=== PATIENT | male | born 1960 | race Caucasian/White ===

== ENCOUNTER 2021-06-21 12:37 | Emergency (ER) | payer BC, OTHER ==
[~2021-06-21] VITALS: Ht 182.9 cm; Wt 77.3 kg
[2021-06-21 12:50] VITALS: BP 142/87
[2021-06-21] MEDS ORDERED: cephalexin 250mg capsule PO ONE (16:30)
[2021-06-21] MEDS ORDERED: CEPH-585 PO (16:30)
[2021-06-21] MEDS ORDERED: sulfamethoxazole/trimethoprim DS (800/160mg) tablet PO ONE (16:30)
[2021-06-21] MEDS ORDERED: SULF1TAB45 PO (16:30)
== END 2021-06-21 18:36 | disposition home or self-care (01) ==
LOC: ER 12:38
DX: S71.001A Unspecified open wound, right hip, initial encounter (principal); L02.415 Cutaneous abscess of right lower limb; F17.210 Nicotine dependence, cigarettes, uncomplicated; Z79.2 Long term (current) use of antibiotics; Z79.899 Other long term (current) drug therapy; X58.XXXA Exposure to other specified factors, initial encounter; Y93.89 Activity, other specified; Y92.89 Other specified places as the place of occurrence of the external cause; Y99.8 Other external cause status
CPT/HCPCS: 99283

== ENCOUNTER 2021-12-14 18:29 | Emergency (ER) | payer BC, MEDICAID ==
[~2021-12-14] VITALS: Ht 182.9 cm; Wt 72.7 kg
[~2021-12-14 18:29] MED LIST: CEPH-585 PO
[2021-12-15] MEDS ORDERED: cephalexin 250mg capsule PO ONE ×2 (00:05→00:20)
[2021-12-15] MEDS ORDERED: bacitracin 15gm ointment TP ONE ×2 (00:05→00:20)
[2021-12-15] MEDS ORDERED: CEPH250T PO (00:05)
[2021-12-15] MEDS ORDERED: ondansetron 4mg rapidly disintigrating tab PO ONE ×2 (00:05→00:25)
[2021-12-15] MEDS ORDERED: BACI28.42 TP (00:05)
[2021-12-15 01:40] VITALS: BP 132/83
== END 2021-12-15 01:42 | disposition home or self-care (01) ==
LOC: ER 18:30
DX: L03.115 Cellulitis of right lower limb (principal); Z79.2 Long term (current) use of antibiotics
CPT/HCPCS: 99284

== ENCOUNTER 2023-09-13 03:40 | Emergency (ER) | payer MEDICAID ==
[~2023-09-13] VITALS: Ht 182.9 cm; Wt 70.1 kg
[~2023-09-13 03:40] MED LIST changes: +BACI28.42 TP; -CEPH-585 PO
[2023-09-13] MEDS: ringers solution, lacted 1,000 ML IV ONE (10:59)
[2023-09-13 11:26] LABS: BASOPHILS % (AUTO) 0.5 % (0-1); EOSINOPHILS # (AUTO) 0.2 X10'3 (0-0.9); EOSINOPHILS % (AUTO) 3.8 % (0-6); HEMATOCRIT 41.3 % (42.0-52.0); HEMOGLOBIN 14.1 g/dl (14.0-17.9); LYMPHOCYTES # (AUTO) 1.9 X10'3 (1.1-4.8); LYMPHOCYTES % (AUTO) 35.1 % (21-51); MEAN CORPUSCULAR HEMOGLOBIN 30.5 PG (27.0-31.0); MEAN CORPUSCULAR HGB CONC 34.1 g/dL (33.0-36.5); MEAN CORPUSCULAR VOLUME 89.4 FL (78-98); MEAN PLATELET VOLUME 8.6 FL (7.4-10.4); MONOCYTES # (AUTO) 0.4 X10'3 (0-0.9); MONOCYTES % (AUTO) 8.1 % (2-12); NEUTROPHILS # (AUTO) 2.9 X10'3 (1.8-7.7); NEUTROPHILS % (AUTO) 52.5 % (42-75); PLATELET COUNT 383 X10'3 (140-440); RED BLOOD COUNT 4.62 X10'6 (4.70-6.10); RED CELL DISTRIBUTION WIDTH 15.5 % (11.5-14.5); WHITE BLOOD COUNT 5.5 X10'3 (4.5-11.0)
[2023-09-13 11:47] LABS: ALBUMIN 3.6 G/DL (3.4-5.0); ANION GAP 8 (8-16); BLOOD UREA NITROGEN 16 MG/DL (7-18); BUN/CREATININE RATIO 21.9 (10.0-20.0); CALCIUM 9.1 MG/DL (8.5-10.1); CHLORIDE 103 MMOL/L (99-107); CREATININE 0.73 MG/DL (0.60-1.10); GLUCOSE 123 MG/DL (70-104); POTASSIUM 3.3 MMOL/L (3.5-5.1); SODIUM 139 MMOL/L (135-145); TOTAL CARBON DIOXIDE 28.3 MMOL/L (24-32); eCRCL 101 ML/MIN; eGFR > 90 ML/MIN
[2023-09-13] MEDS ORDERED: AMOX-117 PO (12:32)
[2023-09-13 12:46] VITALS: BP 132/86; PULSE 73; RESP 16; TEMP 97.8; O2SAT 98
== END 2023-09-13 12:48 | disposition home or self-care (01) ==
LOC: ER 03:41
DX: A46 Erysipelas (principal); F17.200 Nicotine dependence, unspecified, uncomplicated; Z79.2 Long term (current) use of antibiotics
CPT/HCPCS: 71045; 80048; 83605; 83735; 84145; 85025; 87040; 93005; 96360; 99285; J7120

== ENCOUNTER 2025-04-11 23:49 | Inpatient (IN) | payer MEDICARE, MEDICAID ==
[~2025-04-11] VITALS: Ht 182.9 cm; Wt 68.2 kg
--- NOTE | 2025-04-11 23:56 | ELECTROCARDIOGRAPH REPORT ---
[facility] Test Date: 2025-04-11 Test Time: 23:55:10 Pat Name: NIKOLE BARILLAS Department: EMERGENCY ROOM Patient ID: [facility]-[id number] Room: ORTHO [facility] Gender: M Bark Peeler: YOGI : 1960 Requested By: JYOTI MELISSA Order Number: [id number] Reading MD: Dr. Osman Kearns Measurements Intervals [place] Rate: 115 P: 74 NJ: 139 QRS: 69 QRSD: 106 T: 88 QT: 339 QTc: 469 Interpretive Statements Sinus tachycardia Biatrial enlargement RSR' in V1 or V2, probably normal variant LVH with secondary repolarization abnormality Baseline wander in lead(s) II Electronically Signed On 04-16-2025 0:20:[address] Osman Kearns Please click the below link to view image of tracing.
[2025-04-12] VITALS (8 sets, daily range): PULSE 82–105; RESP 14–20; O2SAT 94–99
--- NOTE | 2025-04-12 00:25 | RADIOLOGY REPORT ---
CHEST RADIOGRAPH INDICATION: cough.congestion,sob TECHNIQUE: Frontal and lateral view of the chest was obtained COMPARISON: DI CHEST,SINGLE VIEW on DOS: 09/13/23 FINDINGS: Cardiac silhouette is borderline enlarged. Mild prominence of the pulmonary vasculature. No dense focal airspace disease. No significant pleural effusions or pneumothorax. Bones and soft tissues demonstrate no significant abnormality. IMPRESSION: Cardiomegaly with mild pulmonary venous congestion.
--- NOTE | 2025-04-12 00:26 | Physician Documentation ---
History of Present Illness ~ Chief Complaint: Cold, cough & congestion Stated Complaint: COUGH,COLD,CONGESTION Time Seen by MD: 05:04 Primary Medical Doctor: NONE HPI This is a 64-year-old male who presents by EMS with three days of progressively worsening cough and chest congestion. Patient reports cough has been nonproductive and reports no fever. Patient has a additionally concern for to his right thigh caused by a rasp that he accidentally struck his thigh with four days prior. Date: Apr 12, 2025 Time: 05:04 Additional note by Jake Melissa DO: I took over the care of this patient from previous physician. I reviewed any previous notes available, obtain my own history, review of systems and physical examination was performed by myself. This is a 64-year-old gentleman with a known history of tobacco use, methamphetamine use, no formal diagnosis of congestive heart failure, presents for evaluation of progressive worsening shortness a breath that has been present for the last three days. It is exertional, positional, it is accompanied by chest pain/pressure. It is getting worse. He is no longer able to ambulate even smallest of distances. This has not happened in the past. Denies any fever or chills. Has a wound to the right thigh four days ago. Medication Reconciliation Allergies: Coded Allergies: No Known Allergies (Unverified , 04/12/25) Scheduled Atorvastatin Calcium (Atorvastatin Calcium), 3 TAB PO DAILY, (Reported) Bacitracin (Bacitracin), 1 APPLIC TP BID Baclofen (Baclofen), 1 TAB PO TID, (Reported) Duloxetine HCl (Duloxetine HCl), 1 CAP PO DAILY, (Reported) Gabapentin (Gabapentin), 1 CAP PO TID, (Reported) Scheduled PRN Fluticasone Propionate (Fluticasone Propionate), 1-2 SPRAYS BOTHNARES DAILY PRN for cough, (Reported) Past Medical History Past Medical History: *DERMATOLOGY*, Cellulitis Past Surgical History: orthopedic surgeries Alcohol Use: None Drug Use: none Lives with: Family Lives In: Homeless Review of Systems ROS As stated above in the HPI, otherwise all systems are reviewed and negative. Physical Exam Vital Signs: Temperature: 98.6, Source: Oral, Heart Rate: 119, Respiratory Rate: 20, BP: 159/109, Pulse Oximetry: 96, Weight: 76.000 Oxygen Flow Rate: 0 Physical Exam GENERAL: Awake, alert, oriented, GCS 15, no apparent distress, non-toxic appearing, answers questions, follows commands appropriately. Examined in triage HEENT: Atraumatic, normocephalic, pupils equal, extraocular muscles intact, sclerae anicteric, mucus membranes moist, oropharynx is clear, no stridor. NECK: supple, full active range of motion, trachea midline, no thyromegaly, no lymphadenopathy, no JVD. CARDIOVASCULAR: regular rate/rhythm, no murmurs/gallops/rubs, Pulses are 2+ in all extremities and symmetric. Capillary refill less than 2 seconds. PULMONARY: Nonlabored, good air movement ,no respiratory distress, speaking in full sentences, coarse breath sounds bilaterally, no wheezing, no ronchi, bilateral rales, no accessory muscle use. GASTROINTESTINAL: Soft, non-tender, non-distended, normal active bowel sounds, no organomegaly, no pulsatile masses, no CVA tenderness. NEUROLOGIC: Lucid with normal mental status. Normal facial symmetry. Moves all extremities symmetrically and with purpose. No truncal ataxia. Speech is fluid without evidence of dysarthria or aphasia, no focal deficits appreciated. MUSCULOSKELETAL: There is full range of motion of all extremities. There is no joint pain or joint swelling or joint erythema. There is no muscle pain or tenderness or swelling. EXTREMITIES: warm, well-perfused, no cyanosis, no clubbing, no edema, no acute deformities. Skin: warm, dry, no rashes or lesions, no jaundice, no petechiae orpurpura. No ecchymosis. PSYCHIATRIC: Normal affect, normal insight, normal concentration. Focused exam: [] SKIN: Shallow wound to right anterior thigh approximately 5 cm x 1 cm, mild purulence to wound, approximately 1 cm of surrounding erythema NEURO: PSYCH: Progress Results/Orders Results/Orders Medications Received in ER Medications (Trade) Dose Ordered Sig/Sera Route PRN Reason Start Time Stop Time Status Last Admin Dose Admin (Septra DS tab) 1 tab ONCE ONCE PO 04/12/25 05:10 04/12/25 05:12 DC 04/12/25 05:31 1 TAB (Keflex capsule) 500 mg ONCE ONCE PO 04/12/25 05:10 04/12/25 05:12 DC 04/12/25 05:31 500 MG Vital Signs 04/11/25 04/12/25 23:57 03:31 Temp 98.6 98.9 Pulse 119 60 Resp 20 18 B/P (MAP) 159/109 146/97 (113) Pulse Ox 96 95 O2 Flow Rate 0 0 Laboratory Tests Test 04/11/25 23:57 White Blood Count 10.8 Red Blood Count 4.19 L Hemoglobin 12.2 L Hematocrit 37.0 L Mean Corpuscular Volume 88.3 Mean Corpuscular Hemoglobin 29.1 Mean Corpuscular Hemoglobin Concent 33.0 Red Cell Distribution Width 15.3 H Platelet Count 550 H Mean Platelet Volume 8.4 Neutrophils (%) (Auto) 77.4 H Lymphocytes (%) (Auto) 14.3 L Monocytes (%) (Auto) 6.0 Eosinophils (%) (Auto) 1.5 Basophils (%) (Auto) 0.8 Neutrophils # (Auto) 8.3 H Lymphocytes # (Auto) 1.5 Monocytes # (Auto) 0.7 Eosinophils # (Auto) 0.2 Basophils # (Auto) 0.1 CBC Comment Sodium Level 138 Potassium Level 3.9 Chloride Level 104 Carbon Dioxide Level 26.6 Anion Gap 7 L Blood Urea Nitrogen 14 Creatinine 0.88 Estimated GFR/1.73 m2 87 BUN/Creatinine Ratio 15.9 Glucose Level 176 H Calcium Level 8.2 L Pro-B-Type Natriuretic Peptide 2026 H Albumin 2.9 L Chemistry Comments EKG/XRAY/CT/US/VASC/MRI EKG : Additional Comment EKG was obtained and interpreted by myself shows sinus tachycardic, rate of 115, normal [place] interval, narrow QRS, no QT prolongation, normal axis, no STEMI. Medical Decision Making Additional information obtaine: old records Findings MSE performed in triage and patient returned to ED lobby by nursing staff to await available ED room Date: Apr 12, 2025 Time: 05:06 Facility Status: ED Holds, RME process The plan was discussed with the patient, who demonstrates clear understanding of the plan and is in agreement with the plan unless otherwise noted in the chart. All questions have been answered, all concerns were addressed unless otherwise documented. I was available throughout their ED stay for frequent reassessment and questions. Differential Diagnoses (considered and possible or likely): [Differential diagnosis considered includes COVID, influenza, RSV, upper respiratory infection in the top of the viruses, bacterial pneumonia, CHF exacerbation, chest wall pain, pleurisy, pneumonia, pulmonary embolus, GERD, esophagitis, gastritis, anxiety, stress reaction, costochondritis, acute coronary syndrome, aortic dissection, pericarditis, myocarditis, or pneumothorax. His thigh wound could represent cellulitis versus abscess, less likely necrotizing infection] ??Differential Diagnoses (considered and unlikely, not requiring evaluation currently): [See above] MDM Data Please see [facility] for the following: Independent Historians and external Records Review. Historian: [Patient] Independent Historians: ?[Record review] Medication Management: [Reviewed medication list] Social History and determinants: [Reviewed] Please see the body of the note for the following: Any independent interp retations of ECG, imaging studies. All vitals signs/haemodynamics, ordered tests were independently reviewed and interpreted by myself. Nursing triage complaint and vitals reviewed, additional nursing notes were reviewed as available and I agree unless otherwise noted or documented in contradiction in the chart Vital Signs: Independently reviewed Labs: Independently interpreted Imaging: Independently interpreted Old Medical Records: Independently reviewed, see HPI for relevant summary and information Pulse Oximetry: [92%] interpreted as [borderline hypoxia] by me [Machine Clothing Man: [Regular Rate, Regular rhythm, no ectopy, NSR] reviewed and interpreted by me] Additionally notably showing: [Hemodynamics reviewed. The patient is not febrile, tachycardic, tachycardic improved with rest alone. No evidence of hypotension. No evidence of respiratory distress. CBC normal, no leukocytosis. Chemistry is unremarkable. BNP is elevated concerning for new onset congestive heart failure. Chest x-ray shows pulmonary vascular congestion and cardiomegaly consistent with a new diagnosis of CHF.] Tests considered but not ordered include: [Echocardiogram and stress test can be done on an inpatient basis] Social Determinants of Health Impact: Patient was evaluated in [facility], or [facility] [place] to healthcare due to below par ratio of patient to medical providers. [] Comorbid Conditions Impacting Present Evaluation and Care/Treatment: [Polysubstance abuse including meth use] Management Discussions with other Healthcare Providers: [Hospitalist regarding admission] Treatment and Disposition Medication Management (Given or considered): [Lasix, antibiotics]. See EMR for details Consideration for Hospitalization/Escalation/Deescalation of Care: Admission for observation for further workup of his new onset congestive heart failure and chest pain. ?ED Course:?[Heart score is 4] ?Shared decision making:?[] Code status:?FULL Please see the full Electronic Medical Record for full details of nursing documentation, medications list, other records of complete past medical history and conditions, vital signs, laboratory studies, and any radiologic study interpretations by radiologists. Portions of this note were completed using [employer] dictation software and as a result there may exist minor errors in spelling. I have reviewed elements of past family and social history and agree as included in note. Differential Dx:Considerations: Include: Other (See body of main note for differential diagnosis) Departure Disposition: ADMITTED INPATIENT Admitted to Inpatient Unit: to hospitalist Admission Level of Care: PCU with Tele Impression: Primary Impression: New onset of congestive heart failure Additional Impressions: Exertional chest pain Wound of thigh Condition: Stable Referrals: NO PRIMARY CARE PROVIDER (PCP) Signature Scribe Signature: No scribe Attestation: The note accurately reflects work and decisions made by me.Jake Melissa DO 04/12/25 05:10 YASIR GOMEZ Apr 12, 2025 00:26 JAKE MELISSA DO Apr 12, 2025 05:10 AUSTIN KAPADIA MD Apr 12, 2025 07:36
[2025-04-12 00:35] LABS: MEAN PLATELET VOLUME 8.4 FL (7.4-10.4); RED CELL DISTRIBUTION WIDTH 15.3 % (11.5-14.5)
[2025-04-12 00:59] LABS: CREATININE 0.88 MG/DL (0.60-1.10); PRO BRAIN NATRIURETIC PEPTIDE 2026 PG/ML (0-125); TOTAL CARBON DIOXIDE 26.6 MMOL/L (24-32); eCRCL 78 ML/MIN; eGFR 87 ML/MIN
[2025-04-12] MEDS ORDERED: FLUT16SP26 BOTHNARES (05:25)
[2025-04-12] MEDS ORDERED: GABA-535 PO (05:25)
[2025-04-12] MEDS ORDERED: BACL10TA2 PO (05:25)
[2025-04-12] MEDS ORDERED: ATOR10TA70 PO (05:25)
[2025-04-12] MEDS ORDERED: DULO30CA52 PO (05:25)
[2025-04-12] MEDS: sulfamethoxazole/trimethoprim DS (800/160mg) tablet PO ONE (05:31)
[2025-04-12] MEDS ORDERED: potassium Cl 40MEQ/1/2NS 520ml 520 ML IV PRN (07:40)
[2025-04-12] MEDS ORDERED: potassium Cl 20 mEq SR tablet PO PRN ×2 (07:40)
[2025-04-12] MEDS ORDERED: magnesium sulf-water 4G/100mL 100 ML IV PRN (07:40)
[2025-04-12] MEDS ORDERED: mag hydrox/Alum hydrox/simeth 30ml oral suspension PO PRN (07:40)
[2025-04-12] MEDS ORDERED: ondansetron/PF 4mg/2ml inj IV PRN (07:40)
[2025-04-12] MEDS ORDERED: magnesium sulf-water 2g/50mL 50 ML IV PRN (07:40)
[2025-04-12] MEDS ORDERED: HYDROcodone/acetaminophen 10/325mg tab PO PRN (07:40)
[2025-04-12] MEDS ORDERED: magnesium hydroxide 30ml (MOM) UD suspension PO PRN (07:40)
[2025-04-12] MEDS: PERFLUTREN PROTEIN-A MICROSPHR (Optison) 0.22 MG/ML 3ML VIAL IV ONE (07:40)
[2025-04-12] MEDS ORDERED: magnesium Cl slow-release 64mg tablet PO PRN (07:40)
[2025-04-12] MEDS ORDERED: HYDROcodone/acetaminophen 5mg/325mg tablet PO PRN ×2 (07:40→14:20)
[2025-04-12] MEDS: K and/or MAG REPLACEMENT MC SCH (08:00)
[2025-04-12] MEDS: docusate sod 100mg capsule PO SCH (08:00)
[2025-04-12] MEDS: furosemide 10 MG/1 ML 10ml inj IV ONE (08:04)
[2025-04-12] MEDS: heparin, porcine 5000 units/ml vial SQ SCH (08:37)
[2025-04-12] MEDS ORDERED: albuterol 2.5 MG/3 ML nebule NEB PRN (09:00)
[2025-04-12] MEDS: budesonide 0.5mg/2ml UD nebule IH SCH (10:11)
[2025-04-12] MEDS: ipratropium/albuterol 3ml nebule NEB SCH (10:11)
[2025-04-12 10:53] LABS: LEUKOCYTE ESTERASE ,URINE NEGATIVE (Neg); NITRITES, URINE NEGATIVE (Neg); OCCULT BLOOD,URINE TRACE-INTACT (Neg)
[2025-04-12 10:54] LABS: UA COLLECTION TYPE URINAL
[2025-04-12 10:57] LABS: MUCUS STRANDS NONE SEEN /LPF (Neg); SQUAMOUS EPITHELIAL CELL,UR NONE SEEN /LPF (FEW)
[2025-04-12 12:02] LABS: URINE AMPHETAMINE SCREEN NEGATIVE (Neg); URINE BARBITUATE SCREEN NEGATIVE (Neg); URINE BENZODIAZEPINES SCREEN NEGATIVE (Neg); URINE CANNABINOID SCREEN NEGATIVE (Neg); URINE COCAINE SCREEN NEGATIVE (Neg); URINE METHADONE SCREEN NEGATIVE (Neg); URINE OPIATE SCREEN NEGATIVE (Neg); URINE PHENCYCLIDINE SCREEN NEGATIVE (Neg)
[2025-04-12] MEDS ORDERED: CefTRIAXone/D5W-Rocephin 1gm 50 ML IV ONE (14:10)
[2025-04-12] MEDS ORDERED: morphine 4 MG/ML inj SYRINge IV PRN (14:20)
--- NOTE | 2025-04-12 14:42 | CARDIOLOGY REPORT ---
APPROVED REPORT EXAM: Comprehensive 2D, Doppler, and color-flow Echocardiogram. Patient Location: ED8 Blood Pressure: 138/92 mmHg Heart Rate: 102 bpm Rhythm: NSR Indications CONGESTIVE HEART FAILURE METHAMPHETAMINE USE SHORTNESS OF BREATH CRAP SHOOTER: None PRIOR ECHOCARDIOGRAM: None. 2D Dimensions RVDd 2.7 cm IVSd 0.8 (0.7-1.1cm) LVDd 6.8 cm PWd 1.0 (0.7-1.1cm) IVSs 1.1 (0.8-1.2cm) LVDs 6.0 (2.5-4.0cm) PWs 1.4 (0.8-1.2cm) LVOT Diameter 2.01 (1.8-2.4cm) LVEF(%) 25.0 (>50%) FS (%) 11.9 % SV 59.7 ml CO 5.8 L/min M-Mode Dimensions Left Atrium(MM) 4.15 (2.5-4.0cm) Aortic Root 3.60 (2.2-3.7cm) Aortic Cusp Exc 1.68 (1.5-2.0cm) Aortic Valve AoV Peak Nain. 130.5 cm/s AoV VTI 19.5 cm AO Peak GR. 6.8 mmHg AO Mean GR. 4 mmHg LVOT VTI 14.35 cm LVOT Peak Nain. 83.8 cm/s MARTA(VTI)/BSA 2.33 cm2/m2 MARTA (VTI) 2.33 cm2 AV DI 0.74 % Mitral Valve MV E Velocity 95.9 cm/s MV Peak Gr. 5 mmHg MV PHT 36 ms MVA (PHT) 6.11 cm2 MR VMax 542.7 cm/s MV VMax 112.1 cm/s MR PG Max 117.8 mmHg Tricuspid Valve TR P. Velocity 264 cm/s RAP ESTIMATE 5 mmHg TR Peak Gr. 28 mmHg RVSP 33 mmHg LEFT VENTRICLE Left ventricle is severely dilated with globally severe hypokinesis. Normal wall thickness. Severe LV systolic dysfunction present. Overall estimated ejection fraction is about 25%. RIGHT VENTRICLE RV is normal size and function. RVSP is 33 mmHg. ATRIA Left atrium is moderately dilated. Right atrium is moderately dilated. AORTIC VALVE Trileaflet AV appears mildly sclerotic without stenosis. Trace insufficiency by color and spectral flow Doppler. MITRAL VALVE Mild mitral annular calcification without stenosis. At least moderate mitral regurgitation. TRICUSPID VALVE TV appears structurally normal with trace regurgitation by color and spectral flow Doppler. GREAT VESSELS Aortic root is normal in size. The ascending aorta is normal in size. . The IVC is normal in size and collapses >50% with inspiration. PERICARDIUM Normal pericardium. No effusion. Other Information Study Quality: Good Conclusion Severe LV systolic dysfunction present. Overall estimated ejection fraction is about 25%. Left ventricle is severely dilated with globally severe hypokinesis. Normal wall thickness. RV is normal size and function. RVSP is 33 mmHg. Trileaflet AV appears mildly sclerotic without stenosis. Trace insufficiency by color and spectral flow Doppler. Mild mitral annular calcification without stenosis. At least moderate mitral regurgitation. Aortic root is normal in size. The ascending aorta is normal in size. Normal pericardium. No effusion.
--- NOTE | 2025-04-12 15:15 | HISTORY AND PHYSICAL-Residence ---
History & Physical Providers to Resident Creating Document: SERVANDO CARSON RES ~ History of Present Illness Primary Medical Doctor: NONE Reason for Admit\Complaint: Shortness for breath History of Present Illness This is a 64-year-old male patient with past medical history of methamphetamine use disorder, hyperlipidemia, presumed COPD, who presented in the ER for progressive shortness of breath and dry cough for the past three days. He was never hospitalized for any breathing problems, however he reports dyspnea even for minimal/moderate activities associated with fever sensation, night sweating, lightheadedness and chest discomfort. Patient lives admission and reports using methamphetamine every two weeks approximately. He denies nausea, vomiting or urinary symptoms. Allergies: Coded Allergies: No Known Allergies (Unverified , 04/12/25) Home Medications Home Medications Active Bacitracin 28.4 Gm Oint...g. 1 Applic TP BID Reported Atorvastatin Calcium 10 Mg Tablet 3 Tab PO DAILY Duloxetine HCl 30 Mg Capsule.dr 1 Cap PO DAILY Gabapentin 400 Mg Capsule 1 Cap PO TID Fluticasone Propionate 50 Mcg/Actuation [place].susp 1-2 Sprays BOTHNARES DAILY PRN Baclofen 10 Mg Tablet 1 Tab PO TID Past Medical History Past Medical History Methamphetamine use disorder Chronic back pain Hyperlipidemia Presumed COPD Past Surgical History Surgical History Comment Back surgery Past Social History Smoking: Cigarettes (Half pack daily) Alcohol Use: None Drug Use: Methamphetamine (Patient reports methamphetamine use every two weeks) Lives with: Family Lives In: Homeless (Lives at [place]) Occupation: retired ROS Constitutional: Reports: fever, malaise, weakness Eyes: Reports: no symptoms reported ENT: Reports: no symptoms reported Respiratory: Reports: cough, shortness of breath; Denies: no symptoms reported, see HPI, orthopnea, SOB with exertion, SOB at rest, stridor, wheezing, hemoptysis, pain with breathing, other Cardiovascular: Reports: lightheadedness; Denies: no symptoms reported, see HPI, chest pain, left arm pain, diaphoresis, syncope, edema, palpitations, irregular heart rate, other Gastrointestinal: Reports: no symptoms reported Genitourinary: Reports: no symptoms reported Male Genitalia: Reports: no symptoms reported Neurological: Reports: no symptoms reported Musculoskeletal: Reports: no symptoms reported Integumentary: Reports: no symptoms reported Allergic/Immunologic: Reports: no symptoms reported Hematologic/Lymphatic: Reports: no symptoms reported Endocrine: Reports: no symptoms reported Psychiatric: Reports: no symptoms reported Exam Vitals: Vital Signs Date Time Temp Pulse Resp B/P (MAP) Pulse Ox O2 Delivery O2 Flow Rate FiO2 04/12/25 13:57 109 27 127/84 (98) 96 04/12/25 10:15 Room Air 0.0 04/12/25 10:14 21 04/12/25 03:31 98.9 General: Awake , alert, and oriented x4 HEENT: Atraumatic, normocephalic, EOMI, anicteric sclera ; pink conjunctiva Neck: Trachea midline. Supple, full range of motion, no JVD Cardiac: Tachycardic. Regular rhythm, regular rate with no murmurs all over the precordium. Respiratory: Diminished air movement bilaterally, no tachypnea, diffuse wheezing and bibasilar crackles. Chest wall is symmetric and without deformity. Gastrointestinal: Abdomen symmetric, non-distended, soft, non-tender, normal bowel sounds x4 quadrant, normoactive, no hepatosplenomegaly Musculoskeletal: Trace pedal edema. Lower extremity venous stasis signs. Skin: Warm and dry Diagnostic Data Last Recorded Lab Results: 04/11/25 2357 04/12/25 0746 Counseling Services Smoking & Tobacco Cessation: 3-10 Minutes (Patient was advised to abstain from tobacco use) Advance Care Planning Advanced Care plannin - 30 Minutes (The advanced care directives were discussed, and the patient has requested a full code status.) Additional Plan Assessment A 64-year-old male patient admitted for new onset HFrEF and COPD exacerbation. 1. Acute decompensated congestive heart failure due to newly diagnosed HFrEF (EF 25%) Assessment - NYHA II-III, Class C - patient complains of progressive SOB for the past three days - BNP 2025, negative troponins - EKG: Sinus tachycardia, no acute ischemic findings - CXR: Cardiomegaly with mild pulmonary venous congestion. - Echo: Severe LV systolic dysfunction present. Overall estimated ejection fraction is about 25%. Plan - received Lasix 40 mg IV in ER - started on Lasix 20 mg IV b.i.d. - started on GDMT: Metoprolol succinate 50 mg, Jardiance 10 mg, spironolactone 12.5, losartan 25 mg - strict I&O, daily weight, fluid restriction 2. COPD exacerbation Assessment - patient smokes half pack daily - reports progressive dyspnea and cough - diffuse wheezing noted on physical examination Plan - Solu-Medrol 125 mg once - started on Solu-Medrol 62.5 mg b.i.d. - started on inhaled budesonide daily - started on levofloxacin - DuoNebs q.4h scheduled - incentive spirometry - advised to stop smoking 3. Methamphetamine use disorder - U tox negative but patient reports methamphetamine use every two weeks - advised to abstain from illicit drug use - substance use navigator consulted 4. Hyperlipidemia - ordered A1c and lipid panel - continue rosuvastatin 10 mg daily 5. Chronic back pain - pain management with morphine/[place] Code Status: Full code DVT prophylaxis: Heparin Analgesia/sedation: Morphine/[place] Line/tube: PIV GI prophylaxis: None Nutrition: Heart healthy diet Prognosis: Guarded Disposition: Admit to medical floor with telemetry. Resident MD attestation The above note has been reviewed and supervised by a senior resident PGY2/PGY3 Patient was seen, examined and discussed with the attending physician Allyson Date of Service: Apr 12, 2025 Billing Provider: WILLA HAQ MD Common Visit Codes: 76093-[id number] INP/OBS CARE (HIGH) Secondary Visit Codes: 99848-[id number] CARE PLAN 30 MINUTES SERVANDO CARSON, GUICHO Apr 12, 2025 15:15 WILLA HAQ MD Apr 12, 2025 18:55
[2025-04-12] MEDS: metoprolol succinate 25mg (24-HOUR) SR. Tablet PO SCH (15:17)
[2025-04-12 16:05] LABS: CHOL/HDL RATIO 2.9 (0.00-4.99); LDL CHOLESTEROL 94 MG/DL (50-100)
[2025-04-13] VITALS (17 sets, daily range): BP systolic 98–112; BP diastolic 55–75; PULSE 80–104; RESP 14–27; TEMP 97.7–98.5; O2SAT 91–98
[2025-04-13 02:31] LABS: RED CELL DISTRIBUTION WIDTH 15.0 % (11.5-14.5)
[2025-04-13 02:32] LABS: MEAN PLATELET VOLUME 8.2 FL (7.4-10.4)
[2025-04-13 02:41] LABS: CREATININE 1.01 MG/DL (0.60-1.10); TOTAL CARBON DIOXIDE 27.3 MMOL/L (24-32); eCRCL 68 ML/MIN; eGFR 74 ML/MIN
[2025-04-13] MEDS ORDERED: CefTRIAXone/D5W-Rocephin 1gm 50 ML IV SCH (08:00)
[2025-04-13] MEDS: levoFLOXACIN-Levaquin 500mg/D5 100 ML IV SCH (08:22)
[2025-04-13] MEDS: duloxetine 30mg CAPSULE.DR PO SCH (08:26)
[2025-04-13] MEDS: EMPAGLIFLOZIN 10 MG TABLET PO SCH (08:28)
[2025-04-13] MEDS ORDERED: albuterol 2.5 MG/3 ML nebule NEB PRN (15:05)
[2025-04-13] MEDS: guaiFENesin ER 600mg tablet PO SCH (15:23)
--- NOTE | 2025-04-13 15:48 | CONSULTATION REPORT ---
History of Present Illness Providers to CC CC: MO HERRERA MD ~ Reason for Admit\Admit Dx: Cardiology consultation Refering MD: NONE History of Present Illness Patient present for cough, shortness for breath and dyspnea on exertion. He states he is not able to walk to the bathroom before he becomes short of breath. He denies past medical history. Does use methamphetamine intermittently. He states it helps him get around on his bicycle. He is homeless. Following with the help fan. He was found to have an LVEF of 25% cardiology consultation was requested. Allergies: Coded Allergies: No Known Allergies (Unverified , 04/12/25) Home Medications Home Medications Active Bacitracin 28.4 Gm Oint...g. 1 Applic TP BID Reported Atorvastatin Calcium 10 Mg Tablet 3 Tab PO DAILY Duloxetine HCl 30 Mg Capsule.dr 1 Cap PO DAILY Gabapentin 400 Mg Capsule 1 Cap PO TID Fluticasone Propionate 50 Mcg/Actuation [place].susp 1-2 Sprays BOTHNARES DAILY PRN Baclofen 10 Mg Tablet 1 Tab PO TID Past Medical History Medical History Comment Chronic back pain Presumed COPD Past Surgical History Surgical History Comment Back surgery Past Family History Family History: Patient reports no known family medical history. Past Social History Social History Comment Patient states he uses methamphetamine intermittently Smokes tobacco daily He is homeless States he follows with the [facility] for primary care Physical Exam Last Vital Signs Recorded: RN Vital Signs have been reviewed: Yes, Temperature: 98.0, Source: Oral, Heart Rate: 82, Respiratory Rate: 16, BP: 99/55, Pulse Oximetry: 96, Weight: 76.000 Physical Exam General: Awake, alert, oriented. No apparent distress Neck: Supple. Normal range of motion. No JVD Respiratory: Lungs are expiratory wheezing on exam. Chest: Normal shape and size. No accessory muscle use. Cardiovascular: Regular rate and rhythm. S1-S2. No murmur, gallop, rub. Extremities: No lower extremity edema, cyanosis or clubbing. Neurologic: Alert and oriented x4. Nonfocal Psychiatric: Normal mood and affect. Skin: Normal color. Warm and dry. Review of Systems ROS Review of systems negative except documented in HPI. Results EKG EKG No EKG available in the chart. Echocardiogram Echocardiogram Conclusion Severe LV systolic dysfunction present. Overall estimated ejection fraction is about 25%. Left ventricle is severely dilated with globally severe hypokinesis. Normal wall thickness. RV is normal size and function. RVSP is 33 mmHg. Trileaflet AV appears mildly sclerotic without stenosis. Trace insufficiency by color and spectral flow Doppler. Mild mitral annular calcification without stenosis. At least moderate mitral regurgitation. Aortic root is normal in size. The ascending aorta is normal in size. Normal pericardium. No effusion. Dictated by:EJ WATTERS MD Dictation date and time:04/12/25 1441 X-ray X-ray [place] [id number] DIAGNOSTIC RADIOLOGY Patient: NIKOLE BARILLAS Medical Record: [id number] [place] [address] : 1960, Age: 64 Sex: Male Location: ER Patient Status: [facility] ER Service Date/Time: 04/11/252350 Ordering Physician: JYOTI MELISSA DO Exam: CHEST,TWO VIEWS CHEST RADIOGRAPH INDICATION: cough.congestion,sob TECHNIQUE: Frontal and lateral view of the chest was obtained COMPARISON: DI CHEST,SINGLE VIEW on DOS: 09/13/23 FINDINGS: Cardiac silhouette is borderline enlarged. Mild prominence of the pulmonary vasculature. No dense focal airspace disease. No significant pleural effusions or pneumothorax. Bones and soft tissues demonstrate no significant abnormality. IMPRESSION: Cardiomegaly with mild pulmonary venous congestion. Electronically Signed by:VLAD BURNS MD Date & Time: 04/12/25 0023 Dictated by: VLAD BURNS MD Dictation date and time: 04/11/25 0000 Primary Care Provider: NO PRIMARY CARE PROVIDER cc: JYOTI MELISSA DO ~ Diagram Lab Result Diagram: 04/13/25 01504/13/25157 Assessment/Plan Additional Plan Patient presents secondary to dyspnea on exertion and shortness for breath. The following is his problem list: Heart failure with reduced ejection fraction, acute Started on guideline directed medical therapy by hospitalist service. Continue spironolactone, Jardiance, losartan, metoprolol. Risk of sudden cardiac was reviewed. He is agreeable to LifeVest. Recommend case management involvement for this. Follow up guidelines reviewed. Patient verbalized understanding. Highly encouraged to quit using methamphetamine COPD --management per hospitalist Tobacco use disorder --encouraged to quit Methamphetamine use disorder --encouraged to quit Case discussed with Dr. Josué Herrera who is in agreement with this plan. Supervising MD Supervising Physician: IVAN Ron NP Apr 13, 2025 15:47
--- NOTE | 2025-04-13 17:34 | PROGRESS NOTE- Residence ---
Progress Note - Resident Providers to CC Resident Creating Document: CARIE MARTINEZ RES ~ Antibiotic Timeout Antibiotic Ordered?: Yes Subjective Patient was seen and examined at the bedside. Explained in detail about new diagnosis of heart failure, need for new medications, etiology, follow up and strictly advised against methamphetamine use. Consulted Dr. Herrera who advised the patient for LifeVest and patient is agreeable. Objective Vital Signs Date Time Temp Pulse Resp B/P (MAP) Pulse Ox O2 Delivery O2 Flow Rate FiO2 04/13/25 15:20 82 16 Room Air 0.0 04/13/25 15:13 96 21 04/13/25 10:00 98.0 99/55 (70) Result Diagram: 04/13/258 04/13/25157 General: Awake, alert, oriented. No apparent distress Neck: Supple. Normal range of motion. No JVD Respiratory: Lungs are expiratory wheezing on exam. Chest: Normal shape and size. No accessory muscle use. Cardiovascular: Regular rate and rhythm. S1-S2. No murmur, gallop, rub. Extremities: No lower extremity edema, cyanosis or clubbing. Neurologic: Alert and oriented x4. Nonfocal Psychiatric: Normal mood and affect. Skin: Normal color. Warm and dry. Assessment Assessment This is a 64-year-old male patient with past medical history of methamphetamine use disorder, hyperlipidemia, presumed COPD, who presented in the ER for progressive shortness of breath and dry cough for the past three days. He was never hospitalized for any breathing problems, however he reports dyspnea even for minimal/moderate activities associated with fever sensation, night sweating, lightheadedness and chest discomfort. Patient lives admission and reports using methamphetamine every two weeks approximately. Echocardiogram showed reduced new onset heart failure with ejection fraction of 25% Plan Plan 1. Acute decompensated congestive heart failure due to newly diagnosed HFrEF (EF 25%) Assessment - NYHA II-III, Class C - patient complains of progressive SOB for the past three days - BNP 2025, negative troponins - EKG: Sinus tachycardia, no acute ischemic findings - CXR: Cardiomegaly with mild pulmonary venous congestion. - Echo: Severe LV systolic dysfunction present. Overall estimated ejection fraction is about 25%. Plan - received Lasix 40 mg IV in ER - started on Lasix 20 mg IV b.i.d. - started on GDMT: Metoprolol succinate 50 mg, Jardiance 10 mg, spironolactone 12.5, losartan 25 mg - strict I&O, daily weight, fluid restriction -case management to arrange LifeVest at discharge. 2. COPD exacerbation Assessment - patient smokes half pack daily - reports progressive dyspnea and cough - diffuse wheezing noted on physical examination Plan - Solu-Medrol 125 mg once - started on IV Solu-Medrol 62.5 mg b.i.d. - started on inhaled budesonide daily - started on levofloxacin - DuoNebs q.4h scheduled and albuterol q.2h p.r.n. - incentive spirometry - advised to stop smoking -started on Mucinex and Tessalon Perles 3. Methamphetamine use disorder - U tox negative but patient reports methamphetamine use every two weeks - advised to abstain from illicit drug use - substance use navigator consulted 4. Hyperlipidemia - ordered A1c and lipid panel - continue rosuvastatin 10 mg daily 5. Chronic back pain - pain management with morphine/[place] Code Status: Full code DVT prophylaxis: Heparin Analgesia/sedation: Morphine/[place] Line/tube: PIV GI prophylaxis: None Nutrition: Heart healthy diet Prognosis: Guarded Disposition: Continue care in neuro floor. Resident MD attestation Patient was seen, examined and discussed with the attending physician Allyson Greer MD PGY2 internal medicine resident Date of Service: Apr 13, 2025 Billing Provider: WILLA HAQ MD Common Visit Codes: 73083-[id number] INP/OBS CARE(HIGH) CARIE MARTINEZ, RES Apr 13, 2025 17:33 WILLA HAQ MD Apr 13, 2025 19:06
[2025-04-14] VITALS (11 sets, daily range): BP systolic 100–111; BP diastolic 62–71; PULSE 75–92; RESP 14–18; TEMP 97–97.4; O2SAT 91–95
[2025-04-14 06:31] LABS: MEAN PLATELET VOLUME 8.6 FL (7.4-10.4); RED CELL DISTRIBUTION WIDTH 14.9 % (11.5-14.5)
[2025-04-14 06:41] LABS: CREATININE 0.97 MG/DL (0.60-1.10); TOTAL CARBON DIOXIDE 27.8 MMOL/L (24-32); eCRCL 73 ML/MIN; eGFR 78 ML/MIN
--- NOTE | 2025-04-14 11:42 | PROGRESS NOTE- Residence ---
Progress Note - Resident Providers to CC Resident Creating Document: SERVANDO CARSON RES ~ Antibiotic Timeout Antibiotic Ordered?: No Subjective Patient was seen and examined at bedside. He is still complains of persistent cough mother reports significant improvement of the shortness of breath even while walking. Patient denies chest pain or any other new symptoms since admission. Objective Vital Signs Date Time Temp Pulse Resp B/P (MAP) Pulse Ox O2 Delivery O2 Flow Rate FiO2 04/14/25 10:06 87 04/14/25 09:04 16 Room Air 0.0 04/14/25 08:49 92 21 04/14/25 06:00 97.2 111/71 (84) Result Diagram: 04/14/25 0536 04/14/25 0536 Awake , alert, and oriented x4 HEENT: Atraumatic, normocephalic, EOMI, anicteric sclera ; pink conjunctiva Neck: Trachea midline. Supple, full range of motion, no JVD Cardiac: Tachycardic. Regular rhythm, regular rate with no murmurs all over the precordium. Respiratory: Diminished air movement bilaterally, no tachypnea, diffuse wheezing and bibasilar crackles. Chest wall is symmetric and without deformity. Gastrointestinal: Abdomen symmetric, non-distended, soft, non-tender, normal bowel sounds x4 quadrant, normoactive, no hepatosplenomegaly Musculoskeletal: Trace pedal edema. Lower extremity venous stasis signs. Skin: Warm and dry Assessment Assessment This is a 64-year-old male patient with past medical history of methamphetamine use disorder, hyperlipidemia, presumed COPD, who presented in the ER for progressive shortness of breath and dry cough for the past three days. He was never hospitalized for any breathing problems, however he reports dyspnea even for minimal/moderate activities associated with fever sensation, night sweating, lightheadedness and chest discomfort. Patient lives at [place] and reports using methamphetamine every two weeks approximately. Echocardiogram showed reduced new onset heart failure with ejection fraction of 25% Plan Plan 1. Acute decompensated congestive heart failure due to newly diagnosed HFrEF (EF 25%) Assessment - NYHA II-III, Class C - BNP 2025, negative troponins - EKG: Sinus tachycardia, no acute ischemic findings - CXR: Cardiomegaly with mild pulmonary venous congestion. - Echo: Severe LV systolic dysfunction present. Overall estimated ejection fraction is about 25%. Plan - continue Lasix 20 mg IV b.i.d. - continue GDMT: Metoprolol succinate 50 mg, Jardiance 10 mg, spironolactone 12.5, losartan 25 mg - strict I&O, daily weight, fluid restriction - requested LifeVest - anticipated discharge tomorrow - patient needs PCP referral at discharge 2. COPD exacerbation Assessment - patient smokes half pack daily - reports progressive dyspnea and cough - diffuse wheezing noted on physical examination Plan - continue IV Solu-Medrol 62.5 mg b.i.d. - continue inhaled budesonide daily - continue levofloxacin, day 3 - DuoNebs q.4h scheduled and albuterol q.2h p.r.n. - continue incentive spirometry 3. Methamphetamine use disorder - U tox negative but patient reports methamphetamine use every two weeks - advised to abstain from illicit drug use - substance use navigator consulted 4. Hyperlipidemia - A1c 6.4, LDL 94 - increase rosuvastatin to 20 mg at discharge 5. Chronic back pain - pain management with morphine/[place] Code Status: Full code DVT prophylaxis: Heparin Analgesia/sedation: Morphine/[place] Line/tube: PIV GI prophylaxis: None Nutrition: Heart healthy diet Prognosis: Guarded Disposition: Continue medical treatment. Anticipated discharge tomorrow. Resident attestation Patient was seen, examined and discussed with the attending physician Allyson Date of Service: Apr 14, 2025 Billing Provider: WILLA HAQ MD Common Visit Codes: 11892-XRB/OBS DISCH DAY >30min SERVANDO CARSON, GUICHO Apr 14, 2025 11:42 WILLA HAQ MD Apr 14, 2025 19:26
[2025-04-15] VITALS (12 sets, daily range): BP systolic 101–108; BP diastolic 54–70; PULSE 70–96; RESP 16–23; TEMP 97–97.5; O2SAT 91–95
[2025-04-15 06:05] LABS: MEAN PLATELET VOLUME 8.8 FL (7.4-10.4)
[2025-04-15 06:06] LABS: RED CELL DISTRIBUTION WIDTH 14.8 % (11.5-14.5)
[2025-04-15 06:18] LABS: CREATININE 0.87 MG/DL (0.60-1.10); TOTAL CARBON DIOXIDE 26.7 MMOL/L (24-32); eCRCL 81 ML/MIN; eGFR 88 ML/MIN
--- NOTE | 2025-04-15 11:34 | DISCHARGE SUMMARY-Residence ---
Discharge Summary Providers to CC Resident Creating Document: SERVANDO CARSON RES ~ Discharge Summary Admission Diagnosis: CHF, EXACERBATION Hospital Course DATE OF ADMISSION: 04/12/25 DATE OF DISCHARGE: 04/15/25 Laboratory Tests Test 04/14/25 05:36 04/15/25 05:23 White Blood Count 10.9 X10'3 7.2 X10'3 Red Blood Count 4.32 X10'6 4.57 X10'6 Hemoglobin 12.6 g/dl 13.0 g/dl Hematocrit 38.1 % 40.1 % Mean Corpuscular Volume 88.0 FL 87.8 FL Mean Corpuscular Hemoglobin 29.1 PG 28.4 PG Mean Corpuscular Hemoglobin Concent 33.0 g/dL 32.4 g/dL Red Cell Distribution Width 14.9 % 14.8 % Platelet Count 550 X10'3 579 X10'3 Mean Platelet Volume 8.6 FL 8.8 FL Hematology Comments Sodium Level 140 MMOL/L 139 MMOL/L Potassium Level 4.7 MMOL/L 4.4 MMOL/L Chloride Level 104 MMOL/L 105 MMOL/L Carbon Dioxide Level 27.8 MMOL/L 26.7 MMOL/L Anion Gap 8 7 Blood Urea Nitrogen 29 MG/DL 27 MG/DL Creatinine 0.97 MG/DL 0.87 MG/DL Estimated GFR/1.73 m2 78 ML/MIN 88 ML/MIN BUN/Creatinine Ratio 29.9 31.0 Glucose Level 144 MG/DL 151 MG/DL Calcium Level 8.6 MG/DL 8.7 MG/DL Magnesium Level 2.5 MG/DL 2.6 MG/DL Albumin 2.7 G/DL 2.8 G/DL Chemistry Comments Discharge Diagnosis\Comment: 1. Acute decompensated congestive heart failure due to newly diagnosed HFrEF (EF 25%) 2. COPD exacerbation 3. Methamphetamine use disorder 4. Hyperlipidemia 5. Chronic back pain 6. Respiratory failure ruled out Operations\Procedures: None Consultants: Cardiology Complications: None Condition on DC: Stable Discharge Summary: History of present illness This is a 64-year-old male patient with past medical history of methamphetamine use disorder, hyperlipidemia, presumed COPD, who presented in the ER for progressive shortness of breath and dry cough for the past three days. He was never hospitalized for any breathing problems, however he reports dyspnea even for minimal/moderate activities associated with fever sensation, night sweating, lightheadedness and chest discomfort. Patient lives admission and reports using methamphetamine every two weeks approximately. He denies nausea, vomiting or urinary symptoms Hospital course 64-year-old male with a history of methamphetamine use was admitted for newly diagnosed decompensated HFrEF and COPD exacerbation. The patient was treated with IV Lasix and started on GDMT, which he tolerated without major side effects. He was also treated for COPD exacerbation with antibiotics, steroids, and inhalers. [employer] Operator consult was requested and no further intervention was recommended at this point. Given his reduced ejection fraction, he was considered for a LifeVest, which he agreed to, and arrangements will be made after discharge. Today, the patient reports significant clinical improvement and is stable for discharge with outpatient follow-up. Discharge physical exam Awake , alert, and oriented x4 HEENT: Atraumatic, normocephalic, EOMI, anicteric sclera ; pink conjunctiva Neck: Trachea midline. Supple, full range of motion, no JVD Cardiac: Tachycardic. Regular rhythm, regular rate with no murmurs all over the precordium. Respiratory: Diminished air movement bilaterally, no tachypnea, sparse wheezing and minimal bibasilar crackles. Chest wall is symmetric and without deformity. Gastrointestinal: Abdomen symmetric, non-distended, soft, non-tender, normal bowel sounds x4 quadrant, normoactive, no hepatosplenomegaly Musculoskeletal: Trace pedal edema. Lower extremity venous stasis signs. Skin: Warm and dry Chest x-ray Cardiac silhouette is borderline enlarged. Mild prominence of the pulmonary vasculature. No dense focal airspace disease. No significant pleural effusions or pneumothorax. Bones and soft tissues demonstrate no significant abnormality. Echocardiogram Severe LV systolic dysfunction present. Overall estimated ejection fraction is about 25%. Left ventricle is severely dilated with globally severe hypokinesis. Normal wall thickness. RV is normal size and function. RVSP is 33 mmHg. Trileaflet AV appears mildly sclerotic without stenosis. Trace insufficiency by color and spectral flow Doppler. Mild mitral annular calcification without stenosis. At least moderate mitral regurgitation. Aortic root is normal in size. The ascending aorta is normal in size. Normal pericardium. No effusion. Discharge medications See below Discharge instructions Follow-up with your primary care physician in 1-2 weeks Follow-up with a urban sociologist after a PCP referral Take losartan, metoprolol, Jardiance and spironolactone daily Take levofloxacin and prednisone for more 2 days Take Symbicort daily and albuterol as needed Repeat your CBC and CMP in one week Abstain from any illicit drug use Monitor blood pressure closely as we are starting many new medications Repeat your echocardiogram in three months to reassess your ejection fraction Come back in case of chest pain, shortness of breath, fever or any concerning symptoms. *Problems/Diagnosis: (1) New onset of congestive heart failure Status: Acute (2) COPD exacerbation Status: Acute Total Time Spent on D/C: > 30 Minutes Date of Service: Apr 15, 2025 Billing Provider: WILLA AHQ MD Common Visit Codes: 68859-PAB/OBS DISCH DAY >30min SERVANDO CARSON, RES Apr 15, 2025 11:32 WILLA HAQ MD Apr 15, 2025 18:19
[2025-04-15] MEDS ORDERED: PRED20TA PO (13:28)
[2025-04-15] MEDS ORDERED: EMPA10TA PO (13:28)
[2025-04-15] MEDS ORDERED: ALBU18HF2 INH (13:28)
[2025-04-15] MEDS ORDERED: LOSA25TA41 PO (13:28)
[2025-04-15] MEDS ORDERED: ATOR40TA PO (13:28)
[2025-04-15] MEDS ORDERED: SPIR25TA PO (13:28)
[2025-04-15] MEDS ORDERED: LEVO-65 PO (13:28)
[2025-04-15] MEDS ORDERED: METO-395 PO (13:28)
[2025-04-15] MEDS ORDERED: FURO-150 PO (13:28)
[2025-04-15] MEDS ORDERED: BUDE10.2 INH (13:28)
== END 2025-04-15 17:14 | disposition home or self-care (01) | DRG 190 ==
LOC: ER 23:49 → ED HOLD 04-12 07:41 → ORTHO 4S 04-13 07:32
PROVIDERS: ADMIT Internal Medicine; ATTEND Internal Medicine
DX: J44.1 Chronic obstructive pulmonary disease with (acute) exacerbation (principal); I50.23 Acute on chronic systolic (congestive) heart failure; F15.10 Other stimulant abuse, uncomplicated; Z59.00 Homelessness unspecified; E78.5 Hyperlipidemia, unspecified; F17.210 Nicotine dependence, cigarettes, uncomplicated; G89.29 Other chronic pain; M54.89 Other dorsalgia; Z79.899 Other long term (current) drug therapy
CPT/HCPCS: 36415; 71046; 80048; 80061; 80076; 80305; 81001; 83036; 83735; 83880; 84132; 84145; 84484; 85025; 85027; 85651; 86140; 87081; 93005; 93306; 94640; 94760; 96374; 96375; 96376; 97161; 97530; 99285; A6258; G0378; J1644; J1938; J1956; J2919; J7040